=== PATIENT | female | born 1945 | race Caucasian/White ===

== ENCOUNTER 2020-03-31 14:05 | Inpatient (IN) | payer OTHER ==
[~2020-03-31] VITALS: Ht 157.5 cm; Wt 55.3 kg
--- NOTE | 2020-03-31 14:10 | NUR ---
PT REQUESTING TO BE INVOLVED IN EVERY ASPECT OF CARE, ESPECIALLY MEDICATION.
[2020-03-31 14:55] LABS: BASOPHILS % (AUTO) 0.5 % (0.0-2.0); EOSINOPHILS # (AUTO) 0.1 K/uL (0.0-0.7); EOSINOPHILS % (AUTO) 1.1 % (0.0-7.0); HEMATOCRIT 43.3 % (31.2-41.9); LYMPHOCYTES # (AUTO) 2.5 K/uL (20.0-40.0); LYMPHOCYTES % (AUTO) 28.5 % (20.5-51.5); MEAN CORPUSCULAR HEMOGLOBIN 31.7 uug (24.7-32.8); MEAN CORPUSCULAR HGB CONC 35 g/dL (32.3-35.6); MEAN CORPUSCULAR VOLUME 91.6 fL (75.5-95.3); MONOCYTES # (AUTO) 0.6 K/uL (2.0-10.0); MONOCYTES % (AUTO) 6.3 % (0.0-11.0); NEUTROPHILS # (AUTO) 5.6 K/uL (1.8-8.9); NEUTROPHILS % (AUTO) 63.6 % (38.5-71.5); PLATELET COUNT (AUTO) 220 K/uL (179-408); RED BLOOD CELL COUNT(AUTO) 4.73 MIL/uL (3.63-4.92); WHITE BLOOD COUNT (AUTO) 8.7 K/uL (3.8-11.8)
[2020-03-31 15:05] LABS: CREATININE 0.6 mg/dL (0.6-1.3); POTASSIUM 4.1 mmol/L (3.5-5.1)
[2020-03-31 15:07] LABS: ETHANOL < 3 MG/DL (0-0)
[2020-03-31 15:17] LABS: BILIRUBIN,DIRECT 0.1 mg/dL (0.0-0.2); BILIRUBIN,TOTAL 0.4 mg/dL (0.2-1.0); MAGNESIUM 2.3 mg/dL (1.8-2.4); TOTAL PROTEIN, SERUM 7.7 g/dL (6.4-8.2)
[2020-03-31 15:18] LABS: THYROID STIMULATING HORMONE 1.557 mIU/mL (0.358-3.740)
[2020-03-31] MEDS ORDERED: ACET-2605 PO (15:45)
[2020-03-31] MEDS ORDERED: METO25TA6 PO (15:45)
[2020-03-31] MEDS ORDERED: BIOT5000 PO (15:45)
[2020-03-31] MEDS ORDERED: APIX5TAB4 PO (15:45)
[2020-03-31] MEDS ORDERED: OXYC-128 PO ×2 (15:45)
[2020-03-31] MEDS ORDERED: DOCU-141 PO ×2 (16:24)
[2020-03-31 16:32] LABS: *AMPHETAMINE, URINE NEGATIVE (NEGATIVE); *BARBITURATE, URINE NEGATIVE (NEGATIVE); *CANNABINOID, URINE NEGATIVE (NEGATIVE); *COCCAINE, URINE NEGATIVE (NEGATIVE); *OPIATE, URINE NEGATIVE (NEGATIVE); *PHENCYCLIDINE SCREEN,URINE NEGATIVE (NEGATIVE)
[2020-03-31 17:03] LABS: *BILIRUBIN,URIN NEGATIVE (NEGATIVE); *BLOOD, URINE 1+ (NEGATIVE); *CLARITY,URINE CLEAR (CLEAR); *COLOR,URINE YELLOW (YELLOW); *KETONES,URINE NEGATIVE (NEGATIVE); *UROBILINOGEN,URINE 0.2 E.U./dl (NORMAL); LEUKOCYTE ESTERASE ,URINE NEGATIVE (NEGATIVE); NITRITE, URINE NEGATIVE (NEGATIVE); PH,URINE 7.5 (5.0-8.0); UGLUCOSE NEGATIVE (NEGATIVE)
[2020-03-31 17:10] LABS: BACTERIA,URINE NONE SEEN /HPF (NONE SEEN); WBC,URINE 0-3 /HPF (0-3)
[2020-03-31] MEDS ORDERED: OXYCODONE/APAP 5-325 MG TABLET PO ONE (17:15)
[2020-03-31] MEDS ORDERED: OXYCODONE/APAP 5-325 MG TABLET ONE (17:22)
[2020-03-31] MEDS ORDERED: MORPHINE SULFATE 2 MG/1 ML DISP.SYRIN IV PRN (17:30)
[2020-03-31 17:50] VITALS: BP 102/65
--- NOTE | 2020-03-31 17:55 | NUR ---
pt transfered to [facility] in stable condition. pt ambulated to bathroom using own walker.
[2020-03-31] MEDS ORDERED: OXYCODONE/APAP 5-325 MG TABLET PO SCH (18:00)
--- NOTE | 2020-03-31 18:15 | NUR ---
received from ER awake alert and oriented x 4, sitting at bedside chair, denies of pain at this time, tele applied- afib at 120's, denies of chest pain, states slightly short of breath but refused oxygen, states will let nurse know if she needs it, oriented to floor set up and bed controls as well as call light, initiated initial assessment, pt very willing to answer all questions, safety measures maintained. will endorse to next shift
--- NOTE | 2020-03-31 18:32 | NUR ---
converted to SR 95- see strip
[2020-03-31 20:00] VITALS: BP 133/68
[2020-03-31] MEDS: APIXABAN 5 MG TABLET PO SCH (20:56)
[2020-03-31] MEDS ORDERED: DOCUSATE SODIUM 100 MG CAPSULE PO SCH (21:00)
[2020-03-31] MEDS ORDERED: ACETAMINOPHEN ES 500 MG TABLET PO PRN (22:30)
[2020-03-31 23:46] VITALS: BP 115/61
[2020-04-01 04:18] VITALS: BP 118/64
[2020-04-01 06:43] LABS: BASOPHILS % (AUTO) 0.5 % (0.0-2.0); EOSINOPHILS # (AUTO) 0.2 K/uL (0.0-0.7); EOSINOPHILS % (AUTO) 2.7 % (0.0-7.0); HEMATOCRIT 41.1 % (31.2-41.9); HEMOGLOBIN 14.1 g/dL (10.9-14.3); LYMPHOCYTES # (AUTO) 2.6 K/uL (20.0-40.0); LYMPHOCYTES % (AUTO) 45.8 % (20.5-51.5); MEAN CORPUSCULAR HEMOGLOBIN 31.5 uug (24.7-32.8); MEAN CORPUSCULAR HGB CONC 34 g/dL (32.3-35.6); MEAN CORPUSCULAR VOLUME 91.8 fL (75.5-95.3); MONOCYTES # (AUTO) 0.5 K/uL (2.0-10.0); MONOCYTES % (AUTO) 8.8 % (0.0-11.0); NEUTROPHILS # (AUTO) 2.4 K/uL (1.8-8.9); NEUTROPHILS % (AUTO) 42.2 % (38.5-71.5); PLATELET COUNT (AUTO) 207 K/uL (179-408); RED BLOOD CELL COUNT(AUTO) 4.48 MIL/uL (3.63-4.92); WHITE BLOOD COUNT (AUTO) 5.6 K/uL (3.8-11.8)
[2020-04-01] MEDS ORDERED: PANTOPRAZOLE SODIUM 40 MG TABLET.DR PO SCH (07:00)
[2020-04-01 07:18] LABS: BILIRUBIN,TOTAL 0.6 mg/dL (0.2-1.0); CREATININE 0.7 mg/dL (0.6-1.3); MAGNESIUM 2.2 mg/dL (1.8-2.4); PHOSPHOROUS 3.5 mg/dL (2.5-4.9); TOTAL PROTEIN, SERUM 6.6 g/dL (6.4-8.2)
[2020-04-01] MEDS: APIXABAN 5 MG TABLET PO SCH (08:09)
[2020-04-01] MEDS ORDERED: OXYCODONE/APAP 5-325 MG TABLET PO SCH ×5 (09:00→18:00)
[2020-04-01] MEDS ORDERED: DOCUSATE SODIUM 100 MG CAPSULE PO SCH (09:00)
[2020-04-01 11:40] VITALS: BP 115/53
--- NOTE | 2020-04-01 12:49 | NUR ---
dc orders received noted and carried out,dc heplock per md orders ,dc instruction and education given to the pt,pt left the facility via private van in stable condition
[2020-04-02] MEDS ORDERED: OXYCODONE/APAP 5-325 MG TABLET PO SCH (06:00)
== END 2020-04-01 13:26 | disposition home or self-care (01) | DRG 309 ==
LOC: ER 14:05 → TELE3 17:28
PROVIDERS: ADMIT Nurse Practitioner Acute Care; ATTEND Nurse Practitioner Acute Care
DX: I48.0 Paroxysmal atrial fibrillation (principal); E87.1 Hypo-osmolality and hyponatremia; Z79.01 Long term (current) use of anticoagulants; E86.0 Dehydration; I25.2 Old myocardial infarction; M13.0 Polyarthritis, unspecified; Z85.828 Personal history of other malignant neoplasm of skin; Z98.890 Other specified postprocedural states
CPT/HCPCS: 36415; 70030-TC; 71045; 80307; 83735; 84100; 84443; 85025; 85730; 93005; A4663; G0378; G0480